=== PATIENT | female | born 1955 | race Caucasian/White ===

== ENCOUNTER 2020-11-27 09:26 | Day surgery (SDC) | payer MEDICARE ==
[~2020-11-27] VITALS: Ht 160 cm; Wt 56.4 kg
[~2020-11-27 09:26] MED LIST: CENTRUM SILVER1 EAC3 PO; Calcium + Vita1 EACH; HYDCHL25 PO; LEVSOD88 PO; LOVA40 PO; POTA10T PO
== END 2020-11-27 11:42 | disposition home or self-care (01) ==
LOC: ORSCSDS 09:26
PROVIDERS: Internal Medicine Gastroenterology
PROC: 0DJD8ZZ Inspection of Lower Intestinal Tract, Via Natural or Artificial Opening Endoscopic (ICD-10-PCS; principal; 2020-11-27 10:45)
DX: Z12.11 Encounter for screening for malignant neoplasm of colon (principal); Z86.010 Personal history of colon polyps; E03.9 Hypothyroidism, unspecified; I10 Essential (primary) hypertension; E78.5 Hyperlipidemia, unspecified
CPT/HCPCS: J2704; J7120